=== PATIENT | female | born 1970 | race Caucasian/White ===

== ENCOUNTER 2016-09-09 08:53 | Day surgery (SDC) | payer MEDICAID ==
[~2016-09-09] VITALS: Ht 157.5 cm; Wt 60.3 kg
[2016-09-09] VITALS (10 sets, daily range): BP systolic 99–156; BP diastolic 52–70; PULSE 68–114; RESP 14–18; Ht 157.5 cm; Wt 60.3 kg
[2016-09-09] MEDS ORDERED: LIDOCAINE 2% (SDV) 5 ML INJ ONE (09:22)
[2016-09-09] MEDS ORDERED: CEFAZOLIN 1 GM INJ ONE (09:22)
[2016-09-09] MEDS ORDERED: PROPOFOL 20 ML ONE (09:22)
[2016-09-09] MEDS ORDERED: FENTAnyl 50 MCG/ML VIAL ONE (09:22)
[2016-09-09] MEDS ORDERED: MIDAZOLAM 1 MG/ML 2 ML INJ ONE (09:22)
[2016-09-09] MEDS ORDERED: FER325 PO (09:29)
[2016-09-09] MEDS ORDERED: PROCHLORPERAZINE 10 MG INJ IV PRN (09:30)
[2016-09-09] MEDS ORDERED: HYDROmorphONE (0.2 MG/ML) 10ML SYG IV PRN (09:30)
[2016-09-09] MEDS ORDERED: DIPHENHYDRAMINE 50 MG INJ IV PRN (09:30)
[2016-09-09] MEDS ORDERED: ONDANSETRON 4 MG INJ IV PRN (09:30)
[2016-09-09] MEDS ORDERED: OXYCODONE/ACETAMINOPHEN (5/325) TAB PO PRN ×2 (09:30)
[2016-09-09] MEDS ORDERED: FENTAnyl 50 MCG/ML VIAL IV PRN (09:30)
[2016-09-09] MEDS ORDERED: MEPERIDINE 25 MG INJ IV PRN (09:30)
[2016-09-09 10:24] LABS: CALCIUM 8.8 mg/dl (8.4-10.2); CREATININE 0.55 mg/dl (0.44-1.00); POTASSIUM 3.7 mmol/L (3.5-5.1)
[2016-09-09 10:35] LABS: INR 0.93; PROTIME 12.5 Sec (12.2-14.2)
[2016-09-09] MEDS ORDERED: ONDANSETRON 4 MG INJ ONE (10:57)
[2016-09-09] MEDS ORDERED: METOCLOPRAMIDE 10 MG INJ ONE (10:57)
[2016-09-09] MEDS ORDERED: KETOROLAC 30 MG INJ ONE (11:20)
[2016-09-09] MEDS: HYDROmorphONE (0.2 MG/ML) 10ML SYG IV PRN ×2 (11:41→11:57)
--- NOTE | 2016-09-09 12:22 | OPR ---
DATE OF OPERATION: 09/09/2016 PREOPERATIVE DIAGNOSIS: Left breast mass. POSTOPERATIVE DIAGNOSIS: Left breast mass. OPERATION PERFORMED: Excision of left breast mass. ANESTHESIA: General. ANESTHESIOLOGIST: Dr. Dougherty. SURGEON: Rigo Brooks MD CARE MANAGEMENT ASSISTANT: None. INDICATIONS FOR PROCEDURE: The patient is a 46-year-old female who presented with an enlarging left breast mass. 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 She consented and was schedule d for surgery. DESCRIPTION OF PROCEDURE: The patient was brought to the operating theater, placed under general an esthesia. The left breast was prepped and draped in the usual sterile fashion. The palpable mass a t least 4 to 5 cm in diameter was in the upper outer quadrant. A curvilinear incision was made dire ctly over it. Subcutaneous tissue was dissected with cautery down through the breast parenchyma. A well-circumscribed mass was then encountered. It was enucleated with a gloved finger, transected, removed and sent for permanent pathologic analysis. The wound was irrigated. Residual bleeding was controlled with cautery. The skin was then reapproximated with 4-0 Vicryl suture in subcuticular f ashion and Dermabond was applied. The patient tolerated procedure well. The estimated blood loss w as 10 mL. There were no complications. The patient was transported in stable condition to the [facility] very room where circumferential compression dressing was applied. Dictated By: RIGO HUERTA/DEVAN Conf#: [id number] DID#: [id number]
== END 2016-09-09 13:20 | disposition home or self-care (01) ==
LOC: SDS 08:53
PROVIDERS: ATTEND Surgery Surgical Oncology
DX: D24.2 Benign neoplasm of left breast (principal)
CPT/HCPCS: 19120; 80048; 85610; 85730; 88307; J0690; J1170; J1885; J2175; J2250; J2405; J2765; J3010; Z7512; Z7610